=== PATIENT | female | born 1970 | race Caucasian/White ===

== ENCOUNTER 2017-12-21 17:55 | Emergency (ER) | payer OTHER ==
[~2017-12-21] VITALS: Ht 172.7 cm; Wt 132.7 kg
[2017-12-21] MEDS ORDERED: TRAMADOL HCL50 MG PO (21:02)
[2017-12-21] MEDS ORDERED: KEFLEX500 MG PO (21:02)
[2017-12-21 21:23] VITALS: BP 126/63
== END 2017-12-21 21:24 | disposition home or self-care (01) ==
LOC: EME 17:55
DX: S80.12XA Contusion of left lower leg, initial encounter (principal); W10.9XXA Fall (on) (from) unspecified stairs and steps, initial encounter; Y93.01 Activity, walking, marching and hiking
CPT/HCPCS: 73564; 73590; 93971; 99281; 99284

== ENCOUNTER 2018-06-09 12:58 | Day surgery (SDC) | payer OTHER ==
[~2018-06-09] VITALS: Ht 172.7 cm; Wt 132.9 kg
[~2018-06-09 12:58] MED LIST: ELIQUIS5 MG PO; HYDROCODON-ACE1 EAC7 PO; HYZAAR 100-21 TABLET PO; KEFLEX500 MG PO; MIRENA1 EACH IY; MOBIC15 MG PO; PROAIR HFA8.5 GM IH; PROZAC20 MG PO; TOPAMAX50 MG PO; TRAMADOL HCL50 MG PO; ULTRAM50 MG PO; XANAX0.5 MG PO
[2018-06-09 13:27] VITALS: BP 146/79
[2018-06-09 17:40] VITALS: BP 114/55
[2018-06-09 18:34] VITALS: BP 117/55
== END 2018-06-09 18:52 | disposition home or self-care (01) ==
LOC: SDC 12:58
PROC: 0JBP0ZZ Excision of Left Lower Leg Subcutaneous Tissue and Fascia, Open Approach (ICD-10-PCS; principal; 2018-06-09)
PROC: 0MTP0ZZ Resection of Left Knee Bursa and Ligament, Open Approach (ICD-10-PCS; principal; 2018-06-09)
DX: M70.42 Prepatellar bursitis, left knee (principal); T79.2XXA Traumatic secondary and recurrent hemorrhage and seroma, initial encounter; G47.30 Sleep apnea, unspecified; I10 Essential (primary) hypertension; J44.9 Chronic obstructive pulmonary disease, unspecified; F32.9 Major depressive disorder, single episode, unspecified; D64.9 Anemia, unspecified; M06.9 Rheumatoid arthritis, unspecified; Z86.718 Personal history of other venous thrombosis and embolism; Z87.11 Personal history of peptic ulcer disease; Z82.61 Family history of arthritis; Z82.49 Family history of ischemic heart disease and other diseases of the circulatory system; Z88.3 Allergy status to other anti-infective agents; Z68.41 Body mass index [BMI] 40.0-44.9, adult; Z79.01 Long term (current) use of anticoagulants
CPT/HCPCS: 88304; J0131; J0690; J1100; J1170; J1885; J2250; J2405; J2550; J3010